=== PATIENT | female | born 2000 | race Caucasian/White ===

== ENCOUNTER → 2024-06-19 | Outpatient (CLI) | payer OTHER ==
[~2024-06-19] MED LIST: ACET120S PR; AMOX50SU PO; DIPH12.5EL PO; FAMO20 PO; LORA10ER PO
== END ==
LOC: LAB 15:24 → LAB SHORT 15:24
DX: Z12.4 Encounter for screening for malignant neoplasm of cervix (principal)
CPT/HCPCS: G0123